=== PATIENT | male | born 1985 | race Caucasian/White ===

== ENCOUNTER 2018-05-13 20:07 | Emergency (ER) | payer SELFPAY ==
[2018-05-13 21:37] LABS: APPEARANCE,URINE SLIGHTLY-CLOUDY; BILIRUBIN,URINE NEGATIVE (NEGATIVE); COLOR,URINE YELLOW; GLUCOSE, URINE NEGATIVE (NEGATIVE); KETONES,URINE NEGATIVE (NEGATIVE); LEUKOCYTE ESTERASE,URINE SMALL (NEGATIVE); NITRITE,URINE NEGATIVE (NEGATIVE); PROTEIN,URINE NEGATIVE (NEGATIVE); URINE SPECIFIC GRAVITY 1.019
[2018-05-13 23:08] LABS: CHLAM PCR NOT DETECTED (NOT DETECT); GON PCR DETECTED (NOT DETECT)
[2018-05-13] MEDS ORDERED: METRONIDAZOLE 500 MG TABLET PO ONE (23:31)
[2018-05-13] MEDS ORDERED: ONDANSETRON 4 MG TAB.RAPDIS PO ONE (23:31)
[2018-05-13] MEDS ORDERED: AZITHROMYCIN 250 MG TABLET PO ONE (23:31)
[2018-05-13] MEDS ORDERED: CEFTRIAXONE INJ 250 MG VIAL IM ONE (23:31)
[2018-05-13] MEDS ORDERED: LIDOCAINE 1% INJ-PF (10 MG/ML) 30 ML SDV INJ ONE (23:31)
--- NOTE | 2018-05-13 23:45 | ER Document Report ---
ED GI/ - General Chief Complaint: Pain With Urination Stated Complaint: URINARY PROBLEMS Time Seen by Provider: 05/13/18 23:23 Notes: Patient is a 32-year-old male that comes to the emergency department for chief complaint of penile discharge and dysuria for several days. He has had unprotected intercourse a week ago and then he believes he had an exposure a few weeks before that. He denies rash, fever, abdominal pain, or any other comp laints. He denies any daily medications or medical history. (TYRONE BEGUM) - Related Data Allergies/Adverse Reactions: No Known Allergies Allergy (Verified 05/13/18 20:12) Past Medical History - General Information source: Patient - Social History Smoking Status: Current Every Day Smoker Smoking Education Provided: Yes - <3 min Frequency of alcohol use: Occasional Drug Abuse: Marijuana Lives with: Family Family History: Reviewed & Not Pertinent Patient has suicidal ideation: No Patient has homicidal ideation: No - Medical History Medical History: Negative Renal/ Medical History: Denies: Hx Peritoneal Dialysis Surgical Hx: Negative - Immunizations Immunizations up to date: Yes Hx Diphtheria, Pertussis, Tetanus Vaccination: Yes Review of Systems - Review of Systems Constitutional: No symptoms reported EENT: No symptoms reported Cardiovascular: No symptoms reported Respiratory: No symptoms reported Gastrointestinal: No symptoms reported Genitourinary: See HPI Male Genitourinary: See HPI Musculoskeletal: No symptoms reported Skin: No symptoms reported Hematologic/Lymphatic: No symptoms reported Neurological/Psychological: No symptoms reported Physical Exam - Vital signs Vitals: Temp Pulse Resp BP Pulse Ox 98.9 F 99 14 143/76 H 100 05/13/18 20:24 05/13/18 20:24 05/13/18 20:24 05/13/18 20:24 05/13/18 20:24 - Notes Notes: GENERAL: Alert, interacts well. No acute distress. HEAD: Normocephalic, atraumatic. EYES: Pupils equal, round, and reactive to light. Extraocular movements intact. ENT: Oral mucosa moist, tongue midline. Oropharynx unremarkable. Airway patent. Nares patent, no nasal septal hematoma, TM's intact. NECK: Full range of motion. Supple. Trachea midline. LUNGS: Clear to auscultation bilaterally, no wheezes, rales, or rhonchi. No respiratory distress. HEART: Regular rate and rhythm. No murmur ABDOMEN: Soft, non-tender. Non-distended. Bowel sounds present in all 4 quadrants. GENITOURINARY: There is some discharge noted at the tip of the penis. Testicles unremarkable without tenderness, swelling, arrhythmia. There is no rash noted over the genitals. No inguinal adenopathy. Otherwise unremarkable exam. EXTREMITIES: Moves all 4 extremities spontaneously. No edema, normal radial and dorsalis pedis pulses bilaterally. No cyanosis. BACK: no cervical, thoracic, lumbar midline tenderness. No saddle anesthesia, normal distal neurovascular exam. NEUROLOGICAL: Alert and oriented x3. Normal speech. [cranial nerves II through XII grossly intact]. PSYCH: Normal affect, normal mood. SKIN: Warm, dry, normal turgor. No rashes or lesions noted. (TYRONE BEGUM) Course - Re-evaluation Re-evalutation: Patient is positive for gonorrhea. His physical examination is otherwise unremarkable. No rash suggesting another infection. No evidence of disseminated infection. Patient covered for gonorrhea, chlamydia, and Trichomonas after discussion. Discussed follow-up and return precautions. Patient states understanding and agreement. (TYRONE BEGUM) - Vital Signs Vital signs: Temp Pulse Resp BP Pulse Ox 97.5 F 71 18 143/89 H 100 05/14/18 01:10 05/14/18 01:10 05/14/18 01:10 05/14/18 01:10 05/14/18 01:10 - Laboratory Laboratory results interpreted by me: 05/13/18 05/13/18 21:15 21:16 Urine Urobilinogen 2.0 H Ur Leukocyte Esterase SMALL H N.gonorrhoeae DNA (PCR) DETECTED H Discharge - Discharge Clinical Impression: Penile discharge Condition: Stable Disposition: HOME, SELF-CARE Additional Instructions: You have been diagnosed and treated for gonorrhea infection. You have been broadly covered in addition to this. Do not have intercourse for 7 days. Any partner needs to be treated as well. Follow up with primary care. Return for any concerning symptoms including fever, abdominal pain, rash, or any other concerning symptoms. Cosign for MLP Consult
[2018-05-14 01:13] VITALS: BP 143/89
== END 2018-05-14 01:13 | disposition home or self-care (01) ==
LOC: ER 20:07
DX: R36.9 Urethral discharge, unspecified (principal); A54.9 Gonococcal infection, unspecified; F17.200 Nicotine dependence, unspecified, uncomplicated
CPT/HCPCS: 99283; 81001; 87491; 87591; S0119; J3490; J0696